=== PATIENT | female | born 1985 | race Caucasian/White ===

== ENCOUNTER → 2017-10-05 19:28 | Outpatient (CLI) | payer MEDICAID, SELFPAY ==
[2017-10-13 08:16] LABS: HPV HC, High Risk Negative (Negative); HPV Reflexed? YES, CHARGE PATIENT
== END ==
PROVIDERS: Visit Provider Obstetrics & Gynecology
DX: Z12.4 Encounter for screening for malignant neoplasm of cervix (principal)
CPT/HCPCS: 87624; 88175; G0145

== ENCOUNTER → 2019-05-07 11:53 | Outpatient (CLI) | payer MEDICAID, SELFPAY ==
[2019-05-07 09:21] VITALS: BMI 19.5
[2019-05-09 16:04] LABS: HPV APTIMA, High Risk Negative (Negative)
== END ==
PROVIDERS: Visit Provider Nurse Practitioner Women's Health
DX: Z12.4 Encounter for screening for malignant neoplasm of cervix (principal)
CPT/HCPCS: 87624; 88175; G0145

== ENCOUNTER 2019-06-25 07:11 | Day surgery (SDC) | payer MEDICAID, SELFPAY ==
[2019-05-07 09:21] VITALS: BMI 19.5
[2019-06-06 13:06] VITALS: BMI 19.5
--- NOTE | 2019-06-25 06:47 | PCM.HPOB.BLA ---
- Problem List (1) Consultation for sterilization Status: Acute Comment: Title 19 form signed 05/07/19 Wants tubal ligation. History and Physical Date of Admission: 06/25/19 Intake Vital Signs 06/06/19 Body Mass Index (BMI) 19.5 06/06/19 Height 5 ft 3 in 06/06/19 Weight: 111 lb 06/06/19 Body Mass Index (BMI) 19.6 06/06/19 Blood Pressure 100/60 Intake Visit Reasons: pre op Water Service Dispatcher Required: No Is patient in pain?: No Allergies No Known Allergies Allergy (Verified 06/06/19 13:06) Medications valacyclovir 500 mg tablet 500 mg PO BID 5 Days #10 tab 05/07/19 [Rx Confirmed 06/06/19] Is last menstrual period known: No Post menopausal: No Patient : No : No PFSH Family History (Updated 06/06/19 @ 13:06 by Lulu Pollack) Grandmother Hypertension Father Cancer Lung Social History (Updated 06/06/19 @ 13:25 by Bryanna Mcgarry MD) adopted: No household members: family number of children: 2 current occupational status: employed Smoking Status: Current every day smoker alcohol intake: never substance use type: does not use caffeine: No what type of physical activity do you participate in: none seatbelt use: always do you feel safe at home: Yes additional social history: - [employer] HPI pre op: Details: ROSALIND CARROLL is a 34 year old who presents for preop visit for sterilization. Female Reproductive History Menopausal Symptoms: No night sweats Pregancy History 3 Elective abortions Hx Para 2 Spontaneous abortions Hx # Term Pregnancies Ectopic pregnancies Hx # Pregnancies Multiple births # of living children Past Pregnancies Del. Date Name GA/Weeks Outcome Route Bth Weight Gen Labor Lgth Anesthesia Del Locatn Provider FOB Unknown Yung-2006 Unknown Chely-2007 ROS Const Constitutional: Denies fatigue, night sweats, weight gain or weight loss ENT ENT: Reports system reviewed and no additional complaints, except as docu Cardio Card: Denies chest pain Resp Resp: Denies cough or dyspnea GI GI: Reports as per HPI; denies abdominal pain, constipation, nausea or vomiting : Denies nipple discharge, urinary frequency, urinary incontinence, urinary hesitancy, urinary urgency, vaginal discharge, vaginal dryness, vaginal odor or vaginal itching Musc Musc: Denies joint pain, back pain or muscle weakness Skin Skin/Breast: Denies hair loss, change in hair, dry skin, breast lump, breast pain, breast skin changes or nipple discharge Neuro Neuro: Reports system reviewed and no additional complaints, except as docu Psych Psych: Reports system reviewed and no additional complaints, except as docu Endo Endo: Denies cold intolerance, excessive sweating, heat intolerance or increased thirst Ifeanyi/Lymph Hematologic/Lymphatic: Denies easy bleeding, Denies easy bruising, Denies enlarged lymph nodes Exam Const General: cooperative, healthy appearing, comfortable, no acute distress, well developed Orientation: alert [facility] Head: normal to inspection, normocephalic Ears: hearing grossly normal bilaterally, external ears normal Nose: external nose normal, nares normal Face and sinus: normal facial exam Neck Neck: normal visual inspection, no lymphadenopathy Thyroid: thyroid normal Chest Chest palpation & inspection: normal inspection of the chest Resp Effort & Inspection: normal respiratory effort Auscultation: clear to auscultation bilaterally Cardio Rate: regular rate Rhythm: regular rhythm GI Inspection: normal to inspection, non-distended Palpation: soft, no hepatosplenomegaly Musc Other: gross motor intact no deficits, full bilateral strength Skin General: no rashes or lesions noted Neuro General: alert, awake, moves all extremities, no focal motor deficits Motor: muscle tone normal throughout Extrem General: normal to inspection, no pedal edema Psych Appearance: grossly normal Mental Status: mental status grossly normal Affect: normal affect Speech and Movement: speech and movement normal Assessment & Plan Problems 1. Consultation for sterilization Z30. Title 19 form signed 05/07/19 Wants tubal ligation. Plan After discussing the patient's diagnosis and treatment plan options, patient wishes to proceed with surgical management. I have discussed with the patient the risks, benefits, and alternatives of the procedure which include but are not limited to risks of anesthesia, bleeding, infection, possible damage to bowel, bladder, or surrounding vasculature which could lead to additional surgery to evaluate any complications. Patient agrees to procedure and wishes to proceed. Coding Level of Care Code No Charge Diagnoses Consultation for sterilization Z30.
[2019-06-25 07:38] VITALS: BP 110/73; PULSE 61; RESP 18; TEMP 37.2; O2SAT 100; BMI 19.6
[2019-06-25 07:42] LABS: Internal QC Validated? YES +Cl - CLEAR BKGD; Pregnancy, Urine Negative Negative
[2019-06-25] MEDS: Lactated Ringers 1,000 ML 100 ML IV ×2 (07:46→10:21)
[2019-06-25 07:50] LABS: Hematocrit 43.9 % (37-47); Hemoglobin 14.6 g/dL (12.0-15.0); Mean Corp Hgb Conc 33.3 g/dL (32-36); Mean Corpuscular Hgb 31.7 pg (27.0-32.0); Mean Corpuscular Volume 95.4 fL (81-99); Mean Platelet Vol. 10.6 fl (6.2-12.0); Platelet Count 215 K/mm3 (150-450); RBC Distribution Width CV 13.3 % (11.6-14.6); RBC Distribution Width SD 47.1 fl (35.1-43.9); White Blood Count 10.2 K/mm3 (4.4-11.0)
--- NOTE | 2019-06-25 08:25 | OP.PCM_ITS ---
Problem List (1) Consultation for sterilization Status: Acute Comment: Title 19 form signed 05/07/19 Wants tubal ligation. Report of Operation Date of Procedure: 06/25/19 Pre-Operative Diagnosis: sterilization Post-Operative Diagnosis: same Surgery/Procedure Performed:: larparoscopic bilateral salpingectomy Description of Surgical Findings:: mild left sigmoid to side wall adhesions nl tubes ovaries, pelvic venous congestion homemaker companion: Brandi Levin Type of Anesthesia:: General Special Medications: none Specimen's removed: tubes Drains: none Estimated Blood Loss (mL): minimal Fluids Replaced: crystalloid Description of Procedure: Patient was taken in the operating room and was placed under general anesthesia was prepped and draped in normal sterile fashion in the dorsal lithotomy position. Bladder was drained of clear urine and SCDs were on preoperatively. Uterus was sounded and a uterine manipulator was placed after dilating. Attention was then paid to the abdominal portion of the procedure and the umbilicus was elevated with towel clamps and injected with Marcaine and after a 5 mm incision was made and the Veress needle was entered into the abdomen confirmed to be intra-abdominal with a low opening pressure of less than 5 mmHg. Abdomen was insufflated with CO2 gas and a 5 mm optical trocar was placed under direct visualization. A left lower quadrant 5 mm port and a 5 mm port suprapubically were placed under direct visualization. Uterus was well visualized and bilateral fallopian tubes identified and bilateral tubes were elevated and transecting across the mesosalpinx and the attachment to the uterine corpus bilaterally the tubes were removed without complication. Excellent hemostasis was noted. Fallopian tubes were removed through the lower port sites without complication. left sigmoid to side wall adhesions taken down with ligasure. Liver and upper abdomen were visualized notably within normal limits and no other gross abnormalities were seen in the abdomen. All instruments removed from the abdomen after gas was desufflated. Port sites were closed with 3-0 Monocryl Steri's and op sites were applied. All instruments removed from the vagina and patient was awoken and taken recovery in stable condition. Grafts/Implants Used: none - Complications none - Admit VTE Documentation VTE Present on Admission: No Multi Select Codes - Urinary/Genital Urinary/Genital CPT Codes: 80917 Laproscopic BS/O
--- NOTE | 2019-06-25 08:29 | PCM.DC.TUB ---
Discharge Diet: No Restrictions - Increase fluid intake for the next 48 hours. Discharge Activity: Return to Normal Activity, May Drive - when you are no longer taking narcotic pain medications., May Shower, May Take a Tub Bath - in 7 days Additional Activity Instructions:: Ambulate often the next week after surgery. Nothing in the vagina for 5 days. Call your doctor if your incision/area has: Continuous Slow Oozing, Sudden Increased Bleeding, Increased Pain/ Swelling, Increased Redness, Foul Smelling Discharge Call your doctor if you observe: Fever of 101 or Higher Allergies/Adverse Reactions: Allergies No Known Allergies Allergy (Verified 06/18/19 14:34) Medications to take at Discharge Valacyclovir HCl [Valacyclovir] 500 mg PO BID PRN 06/18/19 Oxycodone HCl/Acetaminophen [Percocet 5-325] 1 - 2 tablet PO Q6H PRN PRN 7 Days #15 tablet 06/25/19 The following prescriptions were given: Oxycodone HCl/Acetaminophen [Percocet 5-325] 1 - 2 tablet PO Q6H PRN PRN 7 Days #15 tablet PRN Reason: Pain Transmission Status: Sent to [facility] Orders to be completed after discharge: Type & Screen Time Frame: 06/25/19, Facility: [facility], Location: Laboratory Primary Care Physician: Care Physician,No Primary [Primary Care Provider] - Test Results: Test results from this visit will be discussed in further detail at your follow-up appointment, if applicable. Please Follow Up With: Bryanna Mcgarry MD - [phone]
--- NOTE | 2019-06-25 08:55 | FALS_PTH ---
PATIENT: ROSALIND CARROLL LOC: [facility] U#:[id number] AGE/SX: 34/F ROOM: RE06/25/[address]: Dr. Bryanna Mcgarry MD : 1985 BED: DIS: 06/25/2019 SPEC #: [id number] RECD: 06/25/19 12:28 STATUS: ANALI GATO #: [id number] ISELA: 06/25/19 08:[address]: Bryanna Mcgarry DEPT: SURGICAL PATHOLOGY RECD BY: Beth Reed ENTERED: 06/25/19 13:15 SP TYPE: FALL TUBES OTHR DR: No Primary Care Phys Tissues: Fallopian tube Procedures: Surgery Specimen Level II HEADER OPERATION: Laparoscopic salpingectomy PRE-OP DIAGNOSIS: Desires sterilization TISSUE SUBMITTED: Bilateral fallopian tubes MICROSCOPIC DIAGNOSIS Bilateral fallopian tubes, salpingectomy: Bilateral fallopian tubes including fimbrial ends, no pathologic diagnosis. SJ:justin 06/26/19 MICROSCOPIC DESCRIPTION Slides are reviewed. GROSS DESCRIPTION Received is one container labeled with the patient's name and designated bilateral fallopian tubes. The specimen consists of bilateral fallopian tubes including fimbrial ends measuring 5 cm in length and 0.5 cm in diameter and 4.5 cm in length and 0.5 cm in diameter. Sections do not reveal any mass lesion. The fallopian tubes are not identified as right or left. Hoisting Laborer sections are submitted in two cassettes with each cassette containing one fallopian tube. / MATT:justin 06/25/19 TC:4 CPT: 63569 x2
[2019-06-25] MEDS: Bupivacaine 0.25% 30 ML Vial (09:00)
[2019-06-25 09:47] VITALS: BP 110/73; BP 130/94; PULSE 75; RESP 16; TEMP 36.3; O2SAT 100
[2019-06-25 10:00] VITALS: BP 110/73; BP 119/81; PULSE 55; RESP 16; O2SAT 100
[2019-06-25 10:17] VITALS: BP 110/73; BP 114/72; PULSE 53; RESP 16; O2SAT 100
[2019-06-25 10:23] VITALS: BP 110/73; BP 115/72; PULSE 54; RESP 16; TEMP 36.4; O2SAT 100
[2019-06-25 11:57] VITALS: BP 110/73; BP 118/60; PULSE 55; RESP 15; TEMP 36.2; O2SAT 100
== END 2019-06-25 12:00 | disposition home or self-care (01) ==
LOC: SDC 07:11 → AC 07:12
PROVIDERS: Referring Provider Obstetrics & Gynecology; Visit Provider Obstetrics & Gynecology
PROC: (CPT 58661; principal; 2019-06-25 08:40)
DX: Z30.2 Encounter for sterilization (principal); F17.200 Nicotine dependence, unspecified, uncomplicated
CPT/HCPCS: 58661; 81025; 85027; 86850; 86900; 86901; 88302; J7120; J2405